=== PATIENT | male | born 1995 | race African-American/Black ===

== ENCOUNTER 2019-08-08 21:01 | Inpatient (IN) | payer OTHER, SELFPAY ==
[~2019-08-08] VITALS: Ht 182.9 cm; Wt 72.6 kg
[2019-08-08 21:12] VITALS: Ht 182.9 cm; Wt 72.6 kg
[2019-08-08 22:35] LABS: BASOPHIL % 0.2 % (0-2)
[2019-08-08 22:43] LABS: PLATELET COUNT 518 x10^3mcL (130-400); RED CELL DISTRIBUTION WIDTH 19.6 % (11.5-14.5)
[2019-08-08 23:04] LABS: rbc morphology (normal/abnorm) ABNORMAL (NORMAL)
[2019-08-08 23:09] LABS: CALCIUM 7.9 mg/dL (8.5-10.1); CARBON DIOXIDE 33.5 mmol/L (21-32); CREATININE SERUM 2.8 mg/dL (0.7-1.3); POTASSIUM SERUM 4.3 mmol/L (3.5-5.1)
[2019-08-08 23:15] LABS: BILIRUBIN TOTAL 0.2 mg/dL (0.20-1.00)
[2019-08-08 23:19] LABS: TOTAL PROTEIN, SERUM 5.4 g/dL (6.4-8.2)
[2019-08-09] VITALS (7 sets, daily range): BP systolic 108–127; BP diastolic 66–73
[2019-08-09 00:42] LABS: MAGNESIUM 1.9 mg/dL (1.8-2.4); PHOSPHOROUS 3.3 mg/dL (2.5-4.9)
[2019-08-09] MEDS ORDERED: FLE10 (01:50)
[2019-08-09] MEDS ORDERED: FEROSUL325 M1 PO (01:51)
[2019-08-09] MEDS ORDERED: RENVELA800 M1 PO (01:52)
[2019-08-09] MEDS ORDERED: DITROPAN XL5 MG PO (01:52)
[2019-08-09] MEDS ORDERED: PEPCID AC20 M2 PO (01:54)
[2019-08-09] MEDS ORDERED: AMLODIPINE BESY PO (01:54)
[2019-08-09] MEDS ORDERED: TOPROL XL100 MG PO (01:56)
[2019-08-09] MEDS ORDERED: HORIZANT300 MG PO (01:57)
[2019-08-09] MEDS ORDERED: AMBIEN5 MG PO (01:58)
[2019-08-09] MEDS ORDERED: COL100 PO (01:59)
[2019-08-09] MEDS ORDERED: DULCOLAX10 M1 RC (01:59)
[2019-08-09] MEDS ORDERED: FLEET ENEMA135 ML PR (02:00)
[2019-08-09] MEDS ORDERED: OXYCODONE HCL10 MG PO (02:01)
[2019-08-09] MEDS ORDERED: MORPHINE S20 MG/5 ML PO (02:04)
[2019-08-09] MEDS ORDERED: GOOD SENSE400 MG/5 M PO (02:05)
[2019-08-09] MEDS ORDERED: IPRATROPIUM BROM3 M2 IH (02:10)
[2019-08-09] MEDS ORDERED: SENNA8.6 M2 PO (02:11)
[2019-08-09 11:02] LABS: BASOPHIL % 0.3 % (0-2)
[2019-08-09 11:07] LABS: RED CELL DISTRIBUTION WIDTH 18.2 % (11.5-14.5)
[2019-08-09 11:14] LABS: CARBON DIOXIDE 32.2 mmol/L (21-32); CREATININE SERUM 3.1 mg/dL (0.7-1.3); MAGNESIUM 1.9 mg/dL (1.8-2.4); PHOSPHOROUS 4.2 mg/dL (2.5-4.9); POTASSIUM SERUM 4.6 mmol/L (3.5-5.1)
[2019-08-09 12:32] LABS: RED BLOOD CELLS 2.28 M/mm3 (4.52-5.90)
[2019-08-09 12:36] LABS: IRON 17 ug/dL (65-170); TOTAL IRON BINDING CAPACITY 71 ug/dL (250-450)
[2019-08-09 14:47] LABS: tear drop cell (dacryocyte) 1+
[2019-08-09 14:48] LABS: rbc morphology (normal/abnorm) ABNORMAL (NORMAL)
[2019-08-09 14:50] LABS: PLATELET COUNT 554 x10^3mcL (130-400)
[2019-08-09 19:20] LABS: BASOPHIL % 0.4 % (0-2); PLATELET COUNT 474 x10^3mcL (130-400); RED CELL DISTRIBUTION WIDTH 17.2 % (11.5-14.5)
[2019-08-10 05:09] VITALS: BP 122/70
[2019-08-10 07:00] LABS: BASOPHIL % 0.5 % (0-2); RED BLOOD CELLS 2.93 M/mm3 (4.52-5.90)
[2019-08-10 07:08] LABS: CALCIUM 8.2 mg/dL (8.5-10.1); CREATININE SERUM 3.6 mg/dL (0.7-1.3); POTASSIUM SERUM 5.3 mmol/L (3.5-5.1)
[2019-08-10 07:12] LABS: PLATELET COUNT 526 x10^3mcL (130-400)
[2019-08-10 07:26] VITALS: BP 122/75
[2019-08-10 07:35] VITALS: BP 110/49
[2019-08-10 12:54] VITALS: BP 147/82
[2019-08-10 16:37] VITALS: BP 114/84
[2019-08-11 04:33] VITALS: BP 132/91
[2019-08-11 06:40] LABS: BASOPHIL % 0.4 % (0-2)
[2019-08-11 06:59] LABS: RED CELL DISTRIBUTION WIDTH 17.1 % (11.5-14.5)
[2019-08-11 07:00] LABS: PLATELET COUNT 660 x10^3mcL (130-400)
[2019-08-11 07:06] LABS: CALCIUM 8.1 mg/dL (8.5-10.1); MAGNESIUM 2.1 mg/dL (1.8-2.4); PHOSPHOROUS 5.3 mg/dL (2.5-4.9)
[2019-08-11 07:11] LABS: CREATININE SERUM 4.1 mg/dL (0.7-1.3); POTASSIUM SERUM 5.8 mmol/L (3.5-5.1)
[2019-08-11 08:08] LABS: calcium (part of PTHIC) 8.7 mg/dL (8.7-10.2)
[2019-08-11 08:23] VITALS: BP 146/90
[2019-08-11 16:36] VITALS: BP 149/94
[2019-08-11 21:42] VITALS: BP 120/80
[2019-08-12 08:10] VITALS: BP 141/101
[2019-08-12 09:00] LABS: BASOPHIL % 0.3 % (0-2)
[2019-08-12 09:01] LABS: CALCIUM 8.4 mg/dL (8.5-10.1); CARBON DIOXIDE 33.7 mmol/L (21-32); CREATININE SERUM 3.8 mg/dL (0.7-1.3); MAGNESIUM 1.9 mg/dL (1.8-2.4)
[2019-08-12 09:06] LABS: RED CELL DISTRIBUTION WIDTH 17.8 % (11.5-14.5)
[2019-08-12 09:30] LABS: PLATELET COUNT 650 x10^3mcL (130-400)
[2019-08-12 16:21] VITALS: BP 138/78
[2019-08-12 16:34] VITALS: BP 141/101
== END 2019-08-12 19:39 | disposition short-term general hospital (02) | DRG 470 ==
LOC: ED 21:01 → MU 08-09 00:10 → DU 08-09 20:38
PROVIDERS: Emergency Medicine; Family Medicine; Specialist; ADMIT Internal Medicine
PROC: 30233N1 Transfusion of Nonautologous Red Blood Cells into Peripheral Vein, Percutaneous Approach (ICD-10-PCS; 2019-08-09)
PROC: 5A1D70Z Performance of Urinary Filtration, Intermittent, Less than 6 Hours Per Day (ICD-10-PCS; principal; 2019-08-11)
DX: I12.0 Hypertensive chronic kidney disease with stage 5 chronic kidney disease or end stage renal disease (principal); J90 Pleural effusion, not elsewhere classified; E11.22 Type 2 diabetes mellitus with diabetic chronic kidney disease; E83.39 Other disorders of phosphorus metabolism; D72.829 Elevated white blood cell count, unspecified; Z20.828 Contact with and (suspected) exposure to other viral communicable diseases; Z88.8 Allergy status to other drugs, medicaments and biological substances; N18.6 End stage renal disease; Z99.2 Dependence on renal dialysis; D63.1 Anemia in chronic kidney disease; E87.5 Hyperkalemia; Z11.59 Encounter for screening for other viral diseases; L97.929 Non-pressure chronic ulcer of unspecified part of left lower leg with unspecified severity; L97.919 Non-pressure chronic ulcer of unspecified part of right lower leg with unspecified severity
CPT/HCPCS: 82962; 83880; G0378; J0610; J0696; J2405; J3010; J7030; J7050; P9016; Q0092; Q0163; U0003-CS

== ENCOUNTER 2019-09-11 17:17 | Inpatient (IN) | payer OTHER ==
[~2019-09-11] VITALS: Ht 185.4 cm; Wt 49.9 kg
[~2019-09-11 17:17] MED LIST: AMBIEN5 MG PO; AMLODIPINE BESY PO; COL100 PO; DITROPAN XL5 MG PO; DULCOLAX10 M1 RC; FEROSUL325 M1 PO; FLE10; FLEET ENEMA135 ML PR; GOOD SENSE400 MG/5 M PO; HORIZANT300 MG PO; IPRATROPIUM BROM3 M2 IH; MORPHINE S20 MG/5 ML PO; OXYCODONE HCL10 MG PO; PEPCID AC20 M2 PO; RENVELA800 M1 PO; SENNA8.6 M2 PO; TOPROL XL100 MG PO
[2019-09-11 17:45] VITALS: Ht 185.4 cm; Wt 49.9 kg
[2019-09-11 18:23] LABS: BASOPHIL % 0.5 % (0-2)
[2019-09-11 18:31] LABS: PLATELET COUNT 545 x10^3mcL (130-400); RED CELL DISTRIBUTION WIDTH 17.7 % (11.5-14.5)
[2019-09-11 18:44] LABS: ALKALINE PHOSPHATASE 189 U/L (46-116); ALT/SGPT 12 U/L (16-63); AMYLASE 31 U/L (25-115); AST/SGOT 22 U/L (15-37); BILIRUBIN TOTAL 0.2 mg/dL (0.20-1.00); CARBON DIOXIDE 34.5 mmol/L (21-32); CHLORIDE SERUM 103 mmol/L (98-107); CREATININE SERUM 3.7 mg/dL (0.7-1.3); GFR1 22 mL/min; GLUCOSE SERUM 110 mg/dL (74-106); LIPASE 59 IU/L (73-393); POTASSIUM SERUM 5.2 mmol/L (3.5-5.1); SODIUM SERUM 139 mmol/L (136-145)
[2019-09-11 18:47] LABS: rbc morphology (normal/abnorm) ABNORMAL (NORMAL); schistocyte (helmet cell) 1+
[2019-09-11 18:48] LABS: CALCIUM 7.8 mg/dL (8.5-10.1)
[2019-09-11 18:49] LABS: ALBUMIN 1.2 g/dL (3.4-5.0); CHOLESTEROL 110 mg/dL (<200); HDL CHOLESTEROL 21 mg/dL (40-60); T4(THYROXINE) 3.8 ug/dL (4.7-13.3); TOTAL PROTEIN, SERUM 6.1 g/dL (6.4-8.2)
[2019-09-11 18:51] LABS: microscopic required? YES; urine erythrocyte 2+ (NEGATIVE)
[2019-09-11 19:38] LABS: AMPHETAMINE QUAL UR NONE DETECTED (See below)
[2019-09-11 21:27] LABS: PHOSPHOROUS 5.1 mg/dL (2.5-4.9)
[2019-09-11 22:53] VITALS: BP 130/79
[2019-09-12 06:00] VITALS: BP 103/547; BP 133/79
[2019-09-12 06:56] VITALS: BP 103/54
[2019-09-12 07:36] LABS: BASOPHIL % 0.5 % (0-2)
[2019-09-12 07:45] LABS: RED CELL DISTRIBUTION WIDTH 17.8 % (11.5-14.5)
[2019-09-12 07:47] LABS: CALCIUM 7.8 mg/dL (8.5-10.1); CARBON DIOXIDE 31.3 mmol/L (21-32); PHOSPHOROUS 5.4 mg/dL (2.5-4.9); POTASSIUM SERUM 5.4 mmol/L (3.5-5.1)
[2019-09-12 07:49] LABS: CREATININE SERUM 4.1 mg/dL (0.7-1.3)
[2019-09-12 07:51] LABS: PLATELET COUNT 570 x10^3mcL (130-400)
[2019-09-12 09:14] VITALS: BP 126/75
[2019-09-12 17:00] VITALS: BP 125/67
[2019-09-12 20:57] VITALS: BP 125/81
[2019-09-13 04:04] LABS: BASOPHIL % 0.4 % (0-2)
[2019-09-13 04:06] LABS: PLATELET COUNT 522 x10^3mcL (130-400); RED CELL DISTRIBUTION WIDTH 16.6 % (11.5-14.5)
[2019-09-13 04:12] LABS: BILIRUBIN TOTAL 0.21 mg/dL (0.20-1.00); CALCIUM 8.1 mg/dL (8.5-10.1); CARBON DIOXIDE 31.8 mmol/L (21-32); CREATININE SERUM 3.5 mg/dL (0.7-1.3); POTASSIUM SERUM 3.7 mmol/L (3.5-5.1); TOTAL PROTEIN, SERUM 6.2 g/dL (6.4-8.2)
[2019-09-13 04:15] LABS: ALBUMIN 1.1 g/dL (3.4-5.0)
[2019-09-13 04:48] LABS: CALCIUM 7.9 mg/dL (8.5-10.1); CARBON DIOXIDE 32.2 mmol/L (21-32); CREATININE SERUM 3.5 mg/dL (0.7-1.3); MAGNESIUM 1.7 mg/dL (1.8-2.4); PHOSPHOROUS 4.2 mg/dL (2.5-4.9); POTASSIUM SERUM 3.6 mmol/L (3.5-5.1)
[2019-09-13 06:03] VITALS: BP 121/73
[2019-09-13 08:51] VITALS: BP 124/72
[2019-09-13 12:38] VITALS: BP 120/73
[2019-09-13 17:33] VITALS: BP 124/85
[2019-09-13 22:05] VITALS: BP 137/91
[2019-09-14 05:31] VITALS: BP 135/85
[2019-09-14 06:26] LABS: MAGNESIUM 1.7 mg/dL (1.8-2.4); PHOSPHOROUS 4.8 mg/dL (2.5-4.9); POTASSIUM SERUM 4.5 mmol/L (3.5-5.1)
[2019-09-14 06:55] LABS: CREATININE SERUM 4.2 mg/dL (0.7-1.3)
[2019-09-14 07:01] LABS: BASOPHIL % 0.4 % (0-2); RED CELL DISTRIBUTION WIDTH 17.3 % (11.5-14.5)
[2019-09-14 08:04] LABS: PLATELET COUNT 521 x10^3mcL (130-400)
[2019-09-14 08:13] VITALS: BP 122/84
[2019-09-14 13:19] VITALS: BP 108/75
[2019-09-14 17:08] VITALS: BP 133/70
[2019-09-14 20:21] VITALS: BP 127/77
[2019-09-15 05:35] VITALS: BP 143/97
[2019-09-15 07:52] LABS: BASOPHIL % 0.3 % (0-2)
[2019-09-15 08:20] LABS: CARBON DIOXIDE 29.1 mmol/L (21-32); CREATININE SERUM 3.4 mg/dL (0.7-1.3); MAGNESIUM 1.8 mg/dL (1.8-2.4); PHOSPHOROUS 4.2 mg/dL (2.5-4.9); POTASSIUM SERUM 4.2 mmol/L (3.5-5.1)
[2019-09-15 08:42] LABS: PLATELET COUNT 486 x10^3mcL (130-400)
[2019-09-15 08:59] VITALS: BP 147/93
[2019-09-15 10:56] VITALS: BP 138/76
[2019-09-15 14:00] VITALS: BP 146/83
[2019-09-15 21:39] VITALS: BP 132/89
== END 2019-09-15 22:08 | DRG 663 ==
LOC: ED 17:17 → DU 20:54
PROVIDERS: Emergency Medicine; Internal Medicine; ADMIT Internal Medicine; ATTEND Internal Medicine
PROC: 5A1D70Z Performance of Urinary Filtration, Intermittent, Less than 6 Hours Per Day (ICD-10-PCS; principal; 2019-09-12)
PROC: 30233N1 Transfusion of Nonautologous Red Blood Cells into Peripheral Vein, Percutaneous Approach (ICD-10-PCS; 2019-09-12)
PROC: 5A1D70Z Performance of Urinary Filtration, Intermittent, Less than 6 Hours Per Day (ICD-10-PCS; 2019-09-14)
DX: D62 Acute posthemorrhagic anemia (principal); J90 Pleural effusion, not elsewhere classified; L89.159 Pressure ulcer of sacral region, unspecified stage; E11.22 Type 2 diabetes mellitus with diabetic chronic kidney disease; G82.20 Paraplegia, unspecified; I12.0 Hypertensive chronic kidney disease with stage 5 chronic kidney disease or end stage renal disease; N18.6 End stage renal disease; F17.210 Nicotine dependence, cigarettes, uncomplicated; D63.1 Anemia in chronic kidney disease; Z20.828 Contact with and (suspected) exposure to other viral communicable diseases; E03.9 Hypothyroidism, unspecified; G89.29 Other chronic pain; J45.909 Unspecified asthma, uncomplicated; Z88.6 Allergy status to analgesic agent; Z99.2 Dependence on renal dialysis; Z79.899 Other long term (current) drug therapy
CPT/HCPCS: 83880; 99406; G0378; G0480; J0885-EC; J1644; J2270; J7030; P9016; Q0092; Q0163; U0003-CS

== ENCOUNTER 2019-10-08 13:49 | Inpatient (IN) | payer OTHER ==
[~2019-10-08] VITALS: Ht 185.4 cm; Wt 59.0 kg
[2019-10-08 14:37] LABS: BASOPHIL % 0.3 % (0-2)
[2019-10-08 14:41] LABS: RED CELL DISTRIBUTION WIDTH 18.4 % (11.5-14.5)
[2019-10-08 14:42] LABS: PLATELET COUNT 555 x10^3mcL (130-400)
[2019-10-08 15:06] LABS: BILIRUBIN TOTAL 0.3 mg/dL (0.20-1.00); CALCIUM 8.3 mg/dL (8.5-10.1); CARBON DIOXIDE 30.3 mmol/L (21-32); TOTAL PROTEIN, SERUM 7.3 g/dL (6.4-8.2)
[2019-10-08 15:10] LABS: ALBUMIN 1.5 g/dL (3.4-5.0)
[2019-10-08 15:14] LABS: CREATININE SERUM 4.1 mg/dL (0.7-1.3)
[2019-10-08 15:31] LABS: rbc morphology (normal/abnorm) ABNORMAL (NORMAL)
[2019-10-08 15:32] LABS: ovalocyte/elliptocyte 1+; target cell (codocyte) 1+; tear drop cell (dacryocyte) 2+
[2019-10-08 18:48] LABS: MAGNESIUM 1.9 mg/dL (1.8-2.4); PHOSPHOROUS 5.8 mg/dL (2.5-4.9)
[2019-10-08 18:50] LABS: CHOLESTEROL/HDL RATIO 3.7
[2019-10-08 18:54] LABS: T3 TOTAL 0.58 ng/mL
[2019-10-08 19:09] LABS: FREE T4 0.75 ng/dL (0.76-1.46); FREE THYROXINE INDEX 1.2 ug/dL (1.4-4.5); T4(THYROXINE) 3.6 ug/dL (4.7-13.3)
[2019-10-08 20:07] VITALS: BP 139/100
[2019-10-08 20:13] VITALS: Ht 185.4 cm; Wt 59.0 kg
[2019-10-08 20:53] LABS: C REACTIVE PROTEIN 10.3 mg/dL (<=0.9)
[2019-10-09 05:27] VITALS: BP 133/99
[2019-10-09 06:34] LABS: BASOPHIL % 0.6 % (0-2)
[2019-10-09 06:47] LABS: CALCIUM 7.9 mg/dL (8.5-10.1); CARBON DIOXIDE 30.2 mmol/L (21-32); MAGNESIUM 1.8 mg/dL (1.8-2.4); PHOSPHOROUS 6.3 mg/dL (2.5-4.9); POTASSIUM SERUM 5.1 mmol/L (3.5-5.1)
[2019-10-09 06:56] LABS: CREATININE SERUM 4.5 mg/dL (0.7-1.3)
[2019-10-09 06:57] LABS: PLATELET COUNT 519 x10^3mcL (130-400); RED CELL DISTRIBUTION WIDTH 18.2 % (11.5-14.5)
[2019-10-09 08:32] VITALS: BP 137/98
[2019-10-09 14:09] LABS: rbc morphology (normal/abnorm) ABNORMAL (NORMAL)
[2019-10-09 16:22] VITALS: BP 119/89
[2019-10-09 19:30] VITALS: BP 133/93
[2019-10-10 00:16] LABS: BASOPHIL % 0.3 % (0-2)
[2019-10-10 00:17] LABS: PLATELET COUNT 474 x10^3mcL (130-400)
[2019-10-10 06:00] VITALS: BP 140/94
[2019-10-10 06:47] LABS: BASOPHIL % 0.3 % (0-2)
[2019-10-10 07:00] LABS: PLATELET COUNT 537 x10^3mcL (130-400); RED CELL DISTRIBUTION WIDTH 16.5 % (11.5-14.5)
[2019-10-10 07:08] LABS: CALCIUM 7.9 mg/dL (8.5-10.1); CARBON DIOXIDE 30.8 mmol/L (21-32); CREATININE SERUM 3.2 mg/dL (0.7-1.3); MAGNESIUM 1.7 mg/dL (1.8-2.4); PHOSPHOROUS 5.3 mg/dL (2.5-4.9); POTASSIUM SERUM 3.9 mmol/L (3.5-5.1)
[2019-10-10 08:54] VITALS: BP 139/97
[2019-10-10 12:14] VITALS: BP 141/95
== END 2019-10-10 16:00 | DRG 470 ==
LOC: ED 13:49 → MU 18:10 → DU 18:10
PROVIDERS: Emergency Medicine; ADMIT Internal Medicine; ATTEND Internal Medicine
PROC: 30233N1 Transfusion of Nonautologous Red Blood Cells into Peripheral Vein, Percutaneous Approach (ICD-10-PCS; principal; 2019-10-08)
PROC: 5A1D70Z Performance of Urinary Filtration, Intermittent, Less than 6 Hours Per Day (ICD-10-PCS; 2019-10-09)
DX: I12.0 Hypertensive chronic kidney disease with stage 5 chronic kidney disease or end stage renal disease (principal); E43 Unspecified severe protein-calorie malnutrition; L89.159 Pressure ulcer of sacral region, unspecified stage; E11.22 Type 2 diabetes mellitus with diabetic chronic kidney disease; G82.20 Paraplegia, unspecified; N18.6 End stage renal disease; Z20.828 Contact with and (suspected) exposure to other viral communicable diseases; D63.1 Anemia in chronic kidney disease; G89.29 Other chronic pain; K21.9 Gastro-esophageal reflux disease without esophagitis; Z88.6 Allergy status to analgesic agent; Z90.49 Acquired absence of other specified parts of digestive tract; Z99.2 Dependence on renal dialysis; Z68.1 Body mass index [BMI] 19.9 or less, adult
CPT/HCPCS: 83880; 84439; C9113; G0378; J1644; J7030; P9016; Q0092; Q0163; U0003-CS

== ENCOUNTER 2019-10-26 16:11 | Emergency (ER) | payer OTHER ==
[~2019-10-26] VITALS: Ht 185.4 cm; Wt 72.6 kg
[2019-10-26 16:27] VITALS: Ht 185.4 cm; Wt 72.6 kg
[2019-10-26 16:31] VITALS: BP 136/84
== END 2019-10-26 19:38 | disposition home or self-care (01) ==
LOC: ED 16:11
DX: T83.028A Displacement of other urinary catheter, initial encounter (principal); E11.22 Type 2 diabetes mellitus with diabetic chronic kidney disease; I12.0 Hypertensive chronic kidney disease with stage 5 chronic kidney disease or end stage renal disease; N18.6 End stage renal disease; Z46.6 Encounter for fitting and adjustment of urinary device; Z88.6 Allergy status to analgesic agent; Z98.890 Other specified postprocedural states

== ENCOUNTER 2019-11-02 18:20 | Inpatient (IN) | payer OTHER ==
[~2019-11-02] VITALS: Ht 185.4 cm; Wt 59.0 kg
[2019-11-02 19:01] LABS: BASOPHIL % 0.2 % (0-2)
[2019-11-02 19:03] LABS: PLATELET COUNT 463 x10^3mcL (130-400); RED CELL DISTRIBUTION WIDTH 18.4 % (11.5-14.5)
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
[2019-11-02 19:20] LABS: rbc morphology (normal/abnorm) ABNORMAL (NORMAL); schistocyte (helmet cell) 1+
[2019-11-02 19:24] LABS: BILIRUBIN DIRECT 0.14 mg/dL (0.0-0.2); BILIRUBIN TOTAL 0.3 mg/dL (0.20-1.00); CALCIUM 8.2 mg/dL (8.5-10.1); CARBON DIOXIDE 22.4 mmol/L (21-32); POTASSIUM SERUM 5.1 mmol/L (3.5-5.1); TOTAL PROTEIN, SERUM 6.9 g/dL (6.4-8.2)
[2019-11-02 19:28] LABS: ALBUMIN 1.6 g/dL (3.4-5.0); CREATININE SERUM 4.9 mg/dL (0.7-1.3)
--- NOTE | 2019-11-02 19:54 | NUR ---
PT CONNECTED TO FULL CM. PT SUPINE IN GURNEY PLAYING VIDEO GAMES. REFUSES TO BE TURNED FOR POSTERIOR BODY SKIN ASSESSMENT.
--- NOTE | 2019-11-02 20:55 | NUR ---
REPORT GIVEN TO ROBERTA MONTANEZ TO ASSUME CARE OF PT.
--- NOTE | 2019-11-02 21:20 | NUR ---
RECEIVED PT FROM ED VIA [facility], CAME IN DUE TO LEAKING CATHETER. AAOX4. DENIES HEADACHE/DIZZINESS. ABLE TO FOLLOW COMMANDS. NO SOB NOTED, LUNG SOUNDS DIMINISHED, O2 EPI=805% ON 3LPM/NC. DENIES COUGH. DENIES CHEST PAIN/PRESSURE, SR W/ OCC. PVC'S ON THE MONITOR. PALE. DENIES ABDOMINAL PAIN/NAUSEA/VOMITING. ABDOMEN IS DISTENDED AND SOFT. W/ LEFT ABDOMINAL COLOSTOMY, NO STOOL OUTPUT NOTED AT THIS TIME, STOMA IS PINK. W. SUPRAPUBIC CATHETER DRAINING W/ CLOUDY YELLOW URINE. C/O 10/10 BACK PAIN AND ITCHINESS. LOTION APPLIED ON THE BACK PT'S REQUEST. W/ OPTIFOAM DRESSING ON THE SACRAL AREA AND KERLIX DRESSINGS ON BLE AND HEEL PROTECTORS, DRESSINGS ARE CDI. PT REFUSED WHOLE BODY SKIN ASSESSMENT. SIDE RAILS UPX2. CALL LIGHT ON REACH. HOB ELEVATED AT 30 DEG. ENDORSED TO PRIMARY NURSE TARIK FOR CONTINUITY OF CARE
[2019-11-02 21:30] VITALS: BP 121/64
[2019-11-02 21:39] VITALS: Ht 185.4 cm; Wt 59.0 kg
--- NOTE | 2019-11-02 22:13 | NUR ---
BLOOD VERIFIED WITH OIL PROCESS STILLMANYUDITH. MEDICATED WITH BENADRYL PO. PRBC STARTED AT 60ML/HR. PRE VS: 98.0F, 92BPM, 18RR, 121/64, 100% ON RA. EDUCATED PT ON S/S OF ADVERSE REACTION AND TO NOTIFY STAFF IF ANY OCCURS, PT VERBALIZED UNDERSTANDING. WILL STAY WITH PT FOR 15MINS, CONTINE TO MONITOR
--- NOTE | 2019-11-02 22:25 | NUR ---
POST 15 MIN VS: 97.5F, 84BPM, 18RR, 120/76, 96% ON 3LNC, NO ADVERSE REACTION NOTED. RATE INCREASED TO 120ML/HR. PT TOLERATING WELL. WILL CONTINUE TO MONITOR.
[2019-11-02 23:13] LABS: T3 TOTAL 0.54 ng/mL
[2019-11-02 23:40] LABS: PHOSPHOROUS 5.4 mg/dL (2.5-4.9)
[2019-11-02 23:41] LABS: CHOLESTEROL/HDL RATIO 3.4; MAGNESIUM 2.1 mg/dL (1.8-2.4)
[2019-11-02 23:42] LABS: FREE T4 1.07 ng/dL (0.76-1.46); FREE THYROXINE INDEX 1.1 ug/dL (1.4-4.5); T4(THYROXINE) 3.4 ug/dL (4.7-13.3)
--- NOTE | 2019-11-03 00:13 | NUR ---
PT RESTING COMFORTABLY IN BED. NO ACUTE DISTRESS NOTED. PRBC INFUSING AT THIS TIME, NO ADVERSE REACTION NOTED. ON TELE READING SR WITH PVCS. REFUSED TO BE TURNED AND REPOSITIONED AT THIS TIME. WILL CONTINUE TO MONITOR.
--- NOTE | 2019-11-03 01:10 | NUR ---
PRBC TRANSFUSION COMPLETED. NO ADVERSE REACTION NOTED. PT TOLERATED WELL. VS: 98.8F, 92BPM, 16RR, 112/70, 100% ON 3LNC. SCHEDULED IVPB STARTED. WILL CONTINUE TO MONITOR.
[2019-11-03 01:18] LABS: UA SPECIFIC GRAVITY <=1.005 (1.005-1.035); microscopic required? YES; urine erythrocyte 1+ (NEGATIVE)
--- NOTE | 2019-11-03 06:52 | NUR ---
PT RESTED IN INTERVALS THROUGHOUT THE SHIFT. ALL NEEDS TENDED TO AND MET. PT REFUSING CARE THIS AM (VS, REPOSITIONING, WOUND PICTURES), WILL MAKE MD AWARE. EVEN AND UNLABORED RESPIRATIONS ON 3LNC, ON TELE READING SR WITH PVCS. GORDON IN PLACE, MILKY GREENISH OUTPUT WITH FOUL ODOR NOTED. RLQ IN PLACE. RIGHT CHEST PERMACATH IN PLACE, DRESSING CDI. BED IN LOWEST POSITION. SIDE RAILS UPX2. CALL LIGHT WITHIN REACH. WILL ENDORSE TO ONCOMING SHIFT.
--- NOTE | 2019-11-03 08:10 | NUR ---
RECEIVED PT IN BED A/A/OX4 DENIES GUITERREZ. RESP EVEN AND UNLABORED WITH DIMINISHED BS ON O2 AT 3L/MIN VIA NC. DENIES ANY SOB/CP/PRESSURE AT THIS TIME. NSR WITH PVC'S ON TELE. ABD DISTENDED, NONTENDER WITH ACTIVE BS. COLOSTOMY TO LLQ WITH FORMED STOOL. PT WOULD NOT ALLOW FULL ASSESSEMENT AT THIS TIME. WOULD NOT TURN TO EXAMINE BACK. PER REPORT PT HAS OPTIFOAM TO SACRAL AREA. PT HAS KERLIX TO BLE AND ARE IN HEEL PROTECTORS. PT WOULD NOT ALLOW INSPECTIONS OF SUPRAPUBIC AREA, GORDON CATH NOTED WITH SMALL AMOUNT OF YELLOW/GREEN CLOUDY URINE. ESRD WITH HD MWF, PT HAD TUNNELED CATH TO RCW. NOTED WITH DRY FLACKY SKIN TO BACK AND HIPS AREA THAT WAS VISUALIZED. PT WOULD NOT ALLOW REPOSITIONING AT THIS TIME OTHER THAN ALIGNING BODY, AND PILLOW ADJUSTMENT. CALL LIGHT IN REACH, NEEDS ATTENDED TO AND ANTICIPATED.
[2019-11-03 08:40] VITALS: BP 113/71
--- NOTE | 2019-11-03 10:45 | NUR ---
HD ORDER IN PLACE, US CALLED HD NURSE AND MADE AWARE OF TX ORDER.
[2019-11-03 12:07] VITALS: BP 114/66
--- NOTE | 2019-11-03 12:45 | NUR ---
PT ALLOWED PARTIAL REPOSITIONING FOR MEAL ALONG WITH MEAL PREP, PT ASKED IF HE WOULD ALLOW AIRMATTRESS TO BE PLACED AND PT REFUSED. CALL LIGHT IN REACH NEEDS ATTENDED TO.
[2019-11-03 16:28] VITALS: BP 127/64
--- NOTE | 2019-11-03 17:40 | NUR ---
PT ASSISTED WITH MEAL PREP, PT ALLOWED REPOSITIONING FOR MEAL. PT ASKED ONCE MORE AT THIS TIME. IF HE WOULD ALLOW COMPLETE REPOSITIONING AFTER MEAL OR TO BE PLACED ON AIRMATTRESS AND PT REFUSED ONCE MORE.
--- NOTE | 2019-11-03 18:49 | NUR ---
PT RESTING AT THIS TIME. DENIES ANY DISCOMFORT, CALL LIGHT IN REACH NEEDS ATTENDED TO.
--- NOTE | 2019-11-03 20:00 | NUR ---
PT A/A/O X3. DENIES DIZZINESS AND HEADACHE. BREATH SOUNDS CLEAR. BREATHING EVEN AND UNLABORED ON 3L NC, SPO2 99%. DENIES CHEST PAIN AND PRESSURE. BOWEL SOUNDS ACTIVE. NO C/O N/V AND ABD PAIN. ABDOMEN DISTENDED. COLOSTOMY BAG NOTED ON LLQ WITH BROWN STOOL. OFFERED TO EMPTY COLOSTOMY BAG. PT STATED "ILL DO IT.". PT CURRENTLY DOING HEOMDIALYSIS THAT STARTED AT 1935. TUNNEL CATH TO RCW. HEMODIALYSIS NURSE AT BEDSIDE. IV INTACT ON THE LAC. PT REFUSE ASSESSMENT FROM THE WAIST DOWN. PT REFUSED TO BE TURNED AND AIR MATTRESS TO BE PUT ON. SUPRABUPIC CATH NOTED EMPTY. DRY FLAKY SKIN NOTED ON THE LEFT HIPS. AND SCRATCHES NOTED ON BUE. MADE PT COMFORTABLE. PLACED CALL LIGHT WITH IN REACH. WILL CONTINUE TO MONITOR.
[2019-11-03 20:03] LABS: BASOPHIL % 0.3 % (0-2)
[2019-11-03 20:07] LABS: CALCIUM 7.9 mg/dL (8.5-10.1); CARBON DIOXIDE 24.6 mmol/L (21-32); MAGNESIUM 2.2 mg/dL (1.8-2.4); PHOSPHOROUS 6.3 mg/dL (2.5-4.9); PLATELET COUNT 443 x10^3mcL (130-400); POTASSIUM SERUM 5.4 mmol/L (3.5-5.1)
[2019-11-03 20:10] LABS: CREATININE SERUM 5.8 mg/dL (0.7-1.3)
[2019-11-03 20:42] VITALS: BP 106/70
--- NOTE | 2019-11-03 22:40 | NUR ---
PT FINISHED HEMODIALYSIS. PT TOLERATED IT WELL. 2600 ML OUT. WILL CONTINUE TO MONITOR.
--- NOTE | 2019-11-04 00:23 | NUR ---
PT REFUSED TO SIGN REFUSAL TO PERMIT TREATMENT PAPER. WILL CONTINUE TO MONITOR.
[2019-11-04 05:13] VITALS: BP 107/67
[2019-11-04 05:38] LABS: BASOPHIL % 0.4 % (0-2)
[2019-11-04 05:46] LABS: PLATELET COUNT 457 x10^3mcL (130-400)
[2019-11-04 05:55] LABS: CALCIUM 7.8 mg/dL (8.5-10.1); CARBON DIOXIDE 26.5 mmol/L (21-32); CREATININE SERUM 3.9 mg/dL (0.7-1.3); MAGNESIUM 1.9 mg/dL (1.8-2.4); PHOSPHOROUS 3.9 mg/dL (2.5-4.9); POTASSIUM SERUM 3.6 mmol/L (3.5-5.1)
--- NOTE | 2019-11-04 06:56 | NUR ---
PT QUIET AND RESTING. NO C/O PAIN AND DISCOMFORT THUS FAR. IV INTACT AND INFUSING ORDERED. MADE PT COFMORTABLE. WILL ENDORSE TO THE AM NURSE ACCORDINGLY.
--- NOTE | 2019-11-04 07:50 | NUR ---
RECEIVED PT IN BED A/A/OX4 DENIES GUTIERREZ. RESP EVEN AND UNLABORED WITH SLIGHTLY DIMINISHED BS BILAT. ON O2 AT 2.5L/MIN VIA NC. NSR WITH PVCS ON TELE. IV TO LAC. ABD DISTENDED, NONTENDER WITH ACTIVE BS X4. DENIES ANY N/V AT THIS TIME. COLOSTOMY TO LLQ. PT REFUSED FULL SKIN ASSESSMENT AT THIS TIME. PER REPORT PT HAS OPTIFOAM TO SACRAL AREA AND BANDAGES TO BLE WITH HEEL PROTECTORS. NOTED WITH DRY FLACKY SKIN TO LT HIP AREA WHERE SKIN WAS VISUALIZED, DRY ITCHY SKIN TO BUE AND BACK. PT WITH SUPRAPUBIC CATHETER UNABLE TO ASSESS SITE WITH SMALL AMOUNT OF CLOUDY URINE. PT PARAPHLEGIC AND BEDBOUND. REFUSES TURNING AND REPOSITIONING. ONLY ALLOW OCC REALIGNMENT. NEEDS ANTICIPATED, CALL LIGHT IN REACH.
[2019-11-04 08:29] VITALS: BP 100/65
--- NOTE | 2019-11-04 09:20 | NUR ---
CHECKED WITH PT IF AM MEDS COULD BE GIVEN PT REFUSED AT THIS TIME REQUESTED TO RETURN LATER.
--- NOTE | 2019-11-04 10:44 | NUR ---
ATTEMPTED TO GIVE MEDS. PT REFUSED. ASKED IF HE WOULD TAKE THEM AROUND LUNCH TIME AND PT AGREED. WILL CONT TO MONITOR.
--- NOTE | 2019-11-04 11:30 | NUR ---
DR. GU MADE AWARE THAT PT HAS BEEN REFUSING CARE AND TURNING. WILL CONT TO MONITOR.
[2019-11-04 12:29] VITALS: BP 98/65
[2019-11-04 12:36] VITALS: BP 110/73
--- NOTE | 2019-11-04 13:30 | NUR ---
ENTER PT'S ROOM TO CK IF PT WILL ALLOW MEDS ORDER SINGNALED BY THE PATIENT TO LEAVE THE ROOM. WILL F/U LATER TODAY.
--- NOTE | 2019-11-04 14:30 | NUR ---
CHECKED ON PT CONT TO REFUSED MEDS AT THIS TIME. REFUSED REPOSITIONING WELL.
[2019-11-04 16:39] VITALS: BP 103/64
--- NOTE | 2019-11-04 17:30 | NUR ---
PT ALLOWED FOR MEDS TO BE GIVEN. AGREED TO PARTIAL BEDBATH WITH HEBICLENS, AND REPOSITIONING. PT ALSO ALLOWED CVD TEST FOR PLACEMENT BACK AT SN[facility]. ASSISTED WITH COLOSTOMY EMPTYING AT THIS TIME. CALL LIGHT IN REACH NEEDS ATTENDED TO.
--- NOTE | 2019-11-04 18:53 | NUR ---
PT RSTING COMFORTABLY AT THIS TIME, DENIES ANY DISCOMFORT. PT COOPERATIVE AT TIMES, WOULD ONLY ALLOW SLIGHT SHIFT IN POSITION AND PELVIC ALIGHMENT DURING THE SHIFT. WOULD NOT ALLOW FULL REPOSITIONING. CALL LIGHT IN REACH NEEDS ATTENDED TO.
--- NOTE | 2019-11-04 20:05 | NUR ---
RECEIVED PT ALERT AND ORIENTED X4, BEDBOUND, CURRENTLY BREATHING REGULAR AND UNLABORED ON ROOM AIR. PT DENIES ANY SOB OR DISCOMFORTAT THIS TIME. NSR WITH PVCS ON TELE MONITORING. LAC PIV IS PATENT, DRESSING CDI, NO SIGNS OF INFILTRATION. PT REFUSED AUSCULTATIN OF CHEST/ABDOMEN, AND LOWER BODY ASSESSMENT. VISUAL ASSESSMENT OF BUE, NO NOTED EDEMA. PER PT REPORT, OPTIFOAM TO SACRAL AREA WITH BLE HEEL PROTECTORS. PT ALSO REPORTS COLOSTOMY AND SUPRAPUBIC CATHETER ARE INTACT, DRAINING BUT PT REFUSES FULL SKIN ASSESSMENT AT THIS TIME. PT REFUSED OFFERED REPOSITIONING AND AIR MATTRESS AT THIS TIME, DISCUSSED RISKS AND BENEFITS. SAFETY PRECUATIONS IN PLACE WITH CALL LIGHT WITHIN REACH, WILL CONTINUE TO MONITOR.
[2019-11-04 20:35] VITALS: BP 114/78
--- NOTE | 2019-11-05 00:15 | NUR ---
PT REMAINS ALERT AND ORIENTED X4, DENIES ANY ACUTE DISTRESS. PT IS CURRENTLY AWAKE, WITH HOB ELEVATED AND EATING SNACK. PT CONTINUES TO REFUSE COMPLETE PHYSICAL ASSESSMENT, AND PER PT REPORT, COLOSTOMY AND SUPRAPUBIC CATHETER ARE INTACT WITHOUT PROBLEMS. VISUAL ASSESSMENT OF RIGHT CHEST TUNNELED CATHETER, DRESSING IS CLEAN, DRY, AND INTACT WITH NO NOTED SWELLING OR REDNESS. PIV IS PATENT AND INFUSING ORDERED ANTIBIOTIC WITHOUT ISSUES. WILL CONTINUE TO OFFER Q2H REPOSITIONING AND PRN FOR COMFORT. SAFETY PRECAUTIONS IN PLACE WITH CALL LIGHT WITHIN REACH, WILL CONTINUE TO MONITOR.
[2019-11-05 05:35] VITALS: BP 116/81
--- NOTE | 2019-11-05 06:12 | NUR ---
PT REMAINED ALERT AND ORIENTED X4, BREATHING REGULAR AND UNLABORED ON ROOM AIR. PT MAINTAINED REFUSAL OF COMPLETE PHYSICAL ASSESSMENT, WITH PT PERMITTING ONLY VISUAL INSPECTION ABOVE THE WAIST. ANTIBIOTICS INFUSED ORDERED, NO SIGNS OF INFILTRATION TO LAC PIV. R CHEST TUNNELED CATHETER REMAINED INTACT, DRESSING CDI. PT REFUSED REPOSITIONING Q2H, REQUESTING TO BE POSITIONED ONLY NEEDED FOR COMFORT. PT DEMONSTRATED CALL LIGHT USE, DENIED ANY DISTRESS OVERNIGHT. SAFETY PRECAUTIONS MAINTAINED, WILL ENDORSE CARE TO DAY SHIFT RN.
[2019-11-05 06:46] LABS: BASOPHIL % 0.4 % (0-2)
[2019-11-05 07:18] LABS: CALCIUM 7.9 mg/dL (8.5-10.1); MAGNESIUM 2.2 mg/dL (1.8-2.4); PHOSPHOROUS 4.5 mg/dL (2.5-4.9); POTASSIUM SERUM 4.3 mmol/L (3.5-5.1)
[2019-11-05 07:21] LABS: CREATININE SERUM 4.6 mg/dL (0.7-1.3)
--- NOTE | 2019-11-05 07:29 | NUR ---
RECEIVED REPORT FROM NIGHTSHIFT RN. PATIENT IS RESTING IN BED. RESPIRATIONS APPEAR REGULAR AND LABORED. UPDATED CARE BOARD. CALL LIGHT AND BEDSIDE TABLE WITHIN REACH. [place] CONTINUE TO MONITOR.
[2019-11-05 07:42] LABS: RED CELL DISTRIBUTION WIDTH 19.1 % (11.5-14.5)
[2019-11-05 07:43] LABS: PLATELET COUNT 510 x10^3mcL (130-400)
[2019-11-05 08:06] VITALS: BP 117/84
--- NOTE | 2019-11-05 08:40 | NUR ---
patient receiving dialysis right now. introduced self and role. attempted to give patient his morning medication but is refusing at this time. he agreed to take it after hd. will continue to monitor.
--- NOTE | 2019-11-05 10:55 | NUR ---
PATIENT AGREED TO TAKE MORNING MEDS. ALLOWED TH IS COCOA ROASTER TO EMPTY COLOSTOMY. PATIENT AGREED TO HAVE A BATH LATER. WILL CONTINUE TO MONITOR.
[2019-11-05 12:21] VITALS: BP 125/89
--- NOTE | 2019-11-05 15:06 | NUR ---
Initial Nutrition Assessment: 232B ANDREA EDUARDO 24M HR Dx: Severe Anemia, complicated UTI PMHx: HTN, CKD, ESRD on HD PSHx: Left colostomy Labs: (11/04) WBC 12.7H, H/H 7.9/24L, Na 133L, BUN 35H, Cr 4.6H, BG 111H, (11/01) CRP 8.6H, albumin 1.6L, HDL 20L Meds: Synthroid, Zosyn, Bactroban, Lipitor, Ditropan, Renagel, Procrit, Pepcid, Flexeril, Nephro-leonard, Neurontin, Folic acid, Ferrous sulfate, topROL XL, Norvasc, Colace Diet: Renal PO intake since admission: 75-100% x 2 meals Ht: 185.42cm/73in Wt: 58.967kg/130lbs BMI: 17.2 Bed scale: not functioning at the time IBW: 79kg/173.8lbs %IBW: 75% UBW: unknown Age: 24 Food Allergies: NFKA per pt Edema: no noted edema Last BM: 11/03 GI: [+] colostomy Skin: Sacral-coccygeal with optifoam, pt refused skin assessment per skin assessment note (11/01) Panchito: 14 Per H and P (11/04), A 23 yo male w/ PMHx of HTN, chronic renal disease and paraplegia presents to the hospital from [facility] with complaints of albina purulent discharge from his suprapubic catheter that started 2 days ago. Pt has no other complaints and states that he is compliant with his hemodialysis, which is scheduled Sunday/Sunday/Sunday. Pt denies fever, headache, nausea, vomiting, shortness of breath, chest pain, abdominal pain, dysuria or hematuria, or generalized weakness. Pt has a hx of paraplegia from the waist down and is currently on room air. Pt was admitted with dx: Hemolytic normocytic anemia, Catheter infection, h/o paraplegia, Vasomotor nephropathy, hypothyroidism, hyponatremia, hypocalcemia, h/o HTN, Severe malnutrition, DVT RD Note (11/04) Pt was seen lying in bed covered by blankets during bedside visit. Pt appeared to be weak and lethargic. Pt reported no GI distress today, and he did not have c/o chewing/swallowing difficulty. In the middle of assessment, pt reported wanting to go back to sleep, and RD talked to pt's RN for information. Per RN, pt did not had his breakfast, and pt did not have his lunch either per observation when RD was in pt's room. RN mentioned that pt told RN his brother will be bringing food to the hospital; however, pt might not have permission from MD. Additionally, RN reported formed stool output in pt's colostomy bag. Problem with: N/V/D/C: none per pt Problems with: Chewing: Swallowing: not accessible since pt had not had any food yet Current appetite: fair per pt, poor per RN and observation Recent wt change: unknown %wt change: unknown Height: unknown Vitamin/Supplement use: unknown Special diet at home: regular diet per admission assessment note on 11/01 Physical activity: unknown Nutrition education given (specify specific nutrition education and handout given): not given at this time d/t pt being lethargic Food-drug interactions? Education given? n/a Estimated Nutritional Needs Based on current body weight (59kg) Energy: 2479-5828 kcal/day (30-35 kcal/kg for ESRD on HD) Protein: 70-83 g/day (1.2-1.4 g/kg for ESRD on HD) Fluid: 3137-4119 mL/day (1 mL/kcal) Nutrition Diagnosis: 1. Underweight r/t imbalance intake and output a/e/b pt BMI < 18.5. 2. Increased energy and protein intake r/t increased energy and protein expenditure a/e/b pt ESRD on HD. 3. Inadequate energy and protein intake r/t poor PO intake a/e/b pt not having breakfast or lunch on 11.04, and RN reported poor appetite. Intervention 1. Continue Renal diet as tolerate 2. RD will implement ONS if pt PO intake meets < 75% of estimated kcal and protein needs. 3. RD will follow up with Renal diet education 4. RD will follow up with intake of outside food Monitor/Evaluate Goal: PO intake at least 75% of estimated needs Monitor: PO intake, Labs, GI function, Body weight F/U in 2-3 days as high risk
--- NOTE | 2019-11-05 16:31 | NUR ---
PATIENT REMAINS A&OX4, ROOM AIR, VITALS STABLE, CONTINUES TO REFUSE FULL ASSESSMENT AND REPOSITIONING. AGREEABLE TO TAKE MEDS. WILL CONTINUE TO MONITOR.
[2019-11-05 16:33] VITALS: BP 123/81
--- NOTE | 2019-11-05 17:06 | NUR ---
PATIENT A&OX4, ROOM AIR, VITALS STABLE, YELLOW URINE DRAINING FROM SUPRAPUBIC CATHETER, COLOSTOMY EMPTIED X1 THIS SHIFT. TOLERATING DIET. CONTINUES TO REFUSE FULL ASSESSMENT. AGREEABLE TO TAKE MEDICATIONS. COVID RESULT NEGATIVE. PENDING URINE CULTURE AND SENSITIVITY RESULTS. PT REFUSES RN TO ASSESS BACK AND BUTTOCK. MD AWARE OF PATIENT NONCOMPLIANCE. CALL LIGHT AND BEDSIDE TABLE WITHIN REACH. NEEDS ATTENDED.
[2019-11-05 20:03] VITALS: BP 126/91
--- NOTE | 2019-11-05 20:39 | NUR ---
ERECEIVED PT LYING IN BED AWAKE ALERT AND ORIENTEDX4.PT IS VERY UNCOOPERATIVE. REFUSED TO ASSESS FIGHTING.RA.IV INFUSING WELL W/ NO INFILTRATION NOTED. NO ACUTE DISTRESS NOTED.
--- NOTE | 2019-11-06 04:22 | NUR ---
0145 AWAKE W/ COMPLAINED OF PAIN AT THE LOER BACK. .NARCO 7.5MG PO GIVEN AND WENT BACK TO SLEEP AFTER.IV INFUSING WELL.NO ACUTE DISTRESS NOTED.
[2019-11-06 05:42] VITALS: BP 128/94
--- NOTE | 2019-11-06 06:45 | NUR ---
AWAKE AND REFUSED TO BE CLEAN UP.HE SAYS HE IS GOOD.RESTING COMFORTABLE IN BED.
[2019-11-06 07:09] LABS: BASOPHIL % 0.6 % (0-2)
[2019-11-06 07:17] LABS: RED CELL DISTRIBUTION WIDTH 19.1 % (11.5-14.5)
[2019-11-06 07:18] LABS: PLATELET COUNT 571 x10^3mcL (130-400)
[2019-11-06 07:24] LABS: CALCIUM 8.2 mg/dL (8.5-10.1); CARBON DIOXIDE 26.9 mmol/L (21-32); CREATININE SERUM 3.9 mg/dL (0.7-1.3); MAGNESIUM 1.8 mg/dL (1.8-2.4); PHOSPHOROUS 3.7 mg/dL (2.5-4.9)
--- NOTE | 2019-11-06 07:36 | NUR ---
RECEIVED PT LYING IN BED A/A. BREATHING EQUAL/UNLABORED ON RA. NO ACUTE PAIN/DISTRESS. REFUSED FULL ASSESSMENT. EDUCATED PT ON NEED FOR ASSESSMENT. BED IN LOW POSITION, CALL LIGHT IN REACH, SAFETY PRECAUTIONS IN PLACE. WILL CONTINUE TO MONITOR
[2019-11-06 07:49] VITALS: BP 131/93
[2019-11-06 08:27] LABS: RED BLOOD CELLS 3.12 M/mm3 (4.52-5.90)
--- NOTE | 2019-11-06 11:38 | NUR ---
PT REFUSED VITAL SIGNS. PT EDUCATION GIVEN
--- NOTE | 2019-11-06 12:47 | NUR ---
PT REFUSED MEDICATIONS, CARE, REPOSITIONING, AND FOOD. PT HAS BEEN EDUCATED BUT IS RESISTIVE. PT IN NO ACUTE DISTRESS. WILL CONTINUE TO MONITOR
--- NOTE | 2019-11-06 15:38 | NUR ---
PT RESTING IN BED WITH EYES CLOSED. BREATHING EQUAL/UNLABORED ON RA. PT REFUSES TO ANSWER QUESTIONS OR PARTICIPATE IN CARE. WILL CONTINUE TO MONITOR
[2019-11-06 15:59] VITALS: BP 126/91
--- NOTE | 2019-11-06 16:50 | NUR ---
DR. GU PAGED REGARDING PATIENTS URINE CULTURE
--- NOTE | 2019-11-06 18:28 | NUR ---
PT LYING IN BED A/A. ORIENTED X4. BREATHING EQUAL/UNLABORED ON RA. NO ACUTE CHANGES/PAIN/DISTRESS. IV SITE WNL. CATHETER FLOWING TO GRAVITY. COLOSTOMY IN PLACE. BED IN LOW POSITION, CALL LIGHT IN REACH, SAFETY PRECAUTIONS IN PLACE. WILL CONTINUE TO MONITOR AND ENDORE TO NIGHT NURSE
[2019-11-06 20:07] VITALS: BP 130/91
--- NOTE | 2019-11-06 23:37 | NUR ---
Pt alert and oriented verbal, C/o of back pain 10/10 described as Stabbing pain on his back. Butler 7.5 mg po given at HS. Denies pain at this time.
[2019-11-07 04:30] VITALS: BP 135/100
--- NOTE | 2019-11-07 05:14 | NUR ---
PT V/S- T98.5 PULSE, 57-62 O2 SAT 88 % ON ROOM AIR DESAT. PT PLACED ON O2 2L N/C O2 SAT WENT UP: O2 SAT 96-97% HR 58-62 PT DENIES ANY CHEST PAINS , NO SHORTNESS OF BREATH. CONTINUE TO MONITOR CONDITION
--- NOTE | 2019-11-07 07:00 | NUR ---
RECIEVED PT RESTING IN BED WITH NO C/O PAIN OR DISTRESS. A/O X4 WITH NO GUTIERREZ OR DIZZINESS. LUNGS CTAB WITH NO SOB NOTED. LLQ COLOSTOMY CDI WITH MINIMAL AMOUNT OF BROWN STOOL. SUPRAPUBIC IN PLACE AND DRAINING SMALL AMOUNT OF DARK YELLOW URINE. PT SCHEDULED FOR HD TODAY, HD NURSE MADE AWARE. PT PARAPLEGIC AND ABLE TO REPOSITION SELF. OPTIFOAM NOTED TO SACRAL AREA. SKIN CDI. LAC IV CDI AND PATENT. SAFETY PRECAUTIONS IN PLACE, CALL LIGHT WITHIN REACH, WILL MONITOR.
--- NOTE | 2019-11-07 07:00 | NUR ---
RECIEVED PT RESTING IN BED WITH NO C/O PAIN OR DISTRESS. A/O X4 WITH NO GUTIERREZ OR DIZZINESS. LUNGS CTAB WITH NO SOB NOTED. LLQ COLOSTOMY WITH MINIMAL AMOUNT OF BROWN STOOL. SUPRAPUBIC IN PLACE AND DRAINING SMALL AMOUNT OF DARK YELLOW URINE. PT SCHEDULED FOR HD TODAY, HD NURSE MADE AWARE. PT PARAPLEGIC AND ABLE TO REPOSITION SELF. PT REFUSING ASSESMENT OF SKIN. LAC IV CDI AND PATENT. SAFETY PRECAUTIONS IN PLACE, CALL LIGHT WITHIN REACH, WILL MONITOR.
[2019-11-07 07:29] LABS: BASOPHIL % 0.6 % (0-2)
[2019-11-07 07:36] LABS: CARBON DIOXIDE 25.7 mmol/L (21-32); POTASSIUM SERUM 4.4 mmol/L (3.5-5.1)
[2019-11-07 08:11] LABS: PLATELET COUNT 556 x10^3mcL (130-400); RED CELL DISTRIBUTION WIDTH 19.3 % (11.5-14.5)
[2019-11-07 08:38] VITALS: BP 130/93
--- NOTE | 2019-11-07 12:02 | NUR ---
HOLDING IV ANTIBIOTICS VANCO AND ZOSYN UNTIL AFTER HD IS COMPLETE. MD DAWSON.
[2019-11-07 12:28] VITALS: BP 125/90
--- NOTE | 2019-11-07 13:07 | NUR ---
DR COBOS MADE AWARE THAT JOSE LUIS AND EILEEN RESISTANT TO INFECTIONS, WILL CARRY OUT ANY NEW ORDERS.
--- NOTE | 2019-11-07 13:27 | NUR ---
NORCO GIVEN FOR C/O GEN. 08/19 PAIN, WILL MONITOR.
--- NOTE | 2019-11-07 15:48 | NUR ---
COVID-19 TEST CARRIED OUT PER ORDER AND TAKEN DOWN TO LAB.
[2019-11-07 16:26] VITALS: BP 119/94
--- NOTE | 2019-11-07 17:11 | NUR ---
AMI BEING HELD UNTIL AFTER HD IS COMPLETE, AWARE. WILL ENDORSE TO [employer]IE[employer]ENANT FIREFIGHTER IF HD NOT DONE BY SHIFT END.
--- NOTE | 2019-11-07 17:55 | NUR ---
NORCO GIVEN PER EMAR FOR C/O 09/18 PAIN, WILL MONITOR.
--- NOTE | 2019-11-07 18:09 | NUR ---
AMI STARTED, HD WILL BE STARTED AT 2000 PER HD NURSE.
--- NOTE | 2019-11-07 18:11 | NUR ---
PT RESTING IN BED WITH NO C/O PAIN OR DISTRESS. A/O X4 WITH NO GUTIERREZ OR DIZZINESS. LUNGS CTAB WITH NO SOB NOTED. LLQ COLOSTOMY WITH MINIMAL AMOUNT OF BROWN STOOL. SUPRAPUBIC IN PLACE AND DRAINING SMALL AMOUNT OF DARK YELLOW URINE. PT SCHEDULED FOR HD AT 1999. PT PARAPLEGIC AND ABLE TO REPOSITION SELF. LAC IV CDI AND PATENT. VS WNL. PT TOLERATED ALL CARES WELL. SAFETY PRECAUTIONS IN PLACE, CALL LIGHT WITHIN REACH, WILL ENDORSE CARE OVER TO NIGHT NURSE.
--- NOTE | 2019-11-07 20:00 | NUR ---
Received pt alert and oriented x4. Requested I empty his colostomy bag. Mod amount formed light brown stool. Stoma pink and moist. Cleansed skin around stoma with wipes and replaced colostomy bag. Assisted with other hygeine needs. Isolation precautions obtained. No distress noted. Continuing to monitor.
[2019-11-07 21:04] VITALS: BP 126/95
--- NOTE | 2019-11-07 21:25 | NUR ---
Heparin given to dialysis nurse to clear patients line.
--- NOTE | 2019-11-08 01:00 | NUR ---
Dialysis finished. 2500 mls out per dialysis nurse. Vitals stable. Placed sterile dressing over RUC port a cath. Snacks given per pt request. Assisted with repositioning with extra pillows.
[2019-11-08 05:15] VITALS: BP 102/48
[2019-11-08 06:49] LABS: BASOPHIL % 0.8 % (0-2)
--- NOTE | 2019-11-08 07:00 | NUR ---
RECIEVED PT RESTING IN BED WITH NO C/O PAIN OR DISTRESS. A/O X4 WITH NO GUTIERREZ OR DIZZINESS. LUNGS CTAB WITH NO SOB NOTED. LLQ COLOSTOMY WITH MINIMAL AMOUNT OF BROWN STOOL. SUPRAPUBIC IN PLACE AND DRAINING SMALL AMOUNT OF DARK YELLOW URINE. PT PARAPLEGIC AND ABLE TO REPOSITION SELF. PT REFUSING ASSESMENT OF SKIN. LAC IV CDI AND PATENT. SAFETY PRECAUTIONS IN PLACE, CALL LIGHT WITHIN REACH, WILL MONITOR.
[2019-11-08 07:06] LABS: CALCIUM 8.4 mg/dL (8.5-10.1); CARBON DIOXIDE 29.1 mmol/L (21-32); CREATININE SERUM 3.7 mg/dL (0.7-1.3); MAGNESIUM 1.8 mg/dL (1.8-2.4); POTASSIUM SERUM 4.1 mmol/L (3.5-5.1)
--- NOTE | 2019-11-08 08:18 | NUR ---
NORCO GIVEN PER EMAR FOR C/O 09/18 GENERALIZED PAIN, WILL MONITOR.
[2019-11-08 08:50] LABS: PLATELET COUNT 594 x10^3mcL (130-400)
[2019-11-08 09:38] VITALS: BP 140/104
--- NOTE | 2019-11-08 11:00 | NUR ---
PT RESTING IN BED WITH NO DISTRESS NOTED. WILL CONTINUE TO MONITOR.
[2019-11-08 13:29] VITALS: BP 143/104
--- NOTE | 2019-11-08 13:45 | NUR ---
Follow up Nutrition Assessment: 232B ANDREA EDUARDO 24M HR Dx: Severe Anemia, complicated UTI PMHx: HTN, CKD, ESRD on HD PSHx: Left colostomy Labs: NA: 135L, BUN: 20H, CREAT: 3.7H, CA: 8.4L, ALK PH: 423H (11/01), HDL: 20L (11/01), (11/01: T4: 3.4L, FTI: 1.1H, TSH: 66.210H, BNP: 1002H), WBC: 12.7H, H/H: 9.2L/28L Meds: amikin, Synthroid, Zosyn, Bactroban, Lipitor, Ditropan, Renagel, Procrit, Pepcid, Flexeril, Nephro-leonard, Neurontin, Folic acid, Ferrous sulfate, topROL XL, Norvasc, Colace, MOM, norco, senokot, zofran Diet: Renal PO intake since admission: 79% x 4 meals Edema: no noted edema Last BM: 11/05 stool in colostomy bag, formed, per nursing shift assessment last BM 11/06 GI: [+] colostomy Skin: pt refused skin assessment per skin assessment note (11/08/19) Panchito: 14 RD Note (11/04) Pt was seen lying in bed covered by blankets during bedside visit. Pt appeared to be weak and lethargic. Pt reported no GI distress today, and he did not have c/o chewing/swallowing difficulty. In the middle of assessment, pt reported wanting to go back to sleep, and RD talked to pt's RN for information. Per RN, pt did not had his breakfast, and pt did not have his lunch either per observation when RD was in pt's room. RN mentioned that pt told RN his brother will be bringing food to the hospital; however, pt might not have permission from MD. Additionally, RN reported formed stool output in pt's colostomy bag. RD note 11/08/19: per MD progress note- suprapubic catheter infection, severe hemoglobic deficiency, paraplegia, ESRD. Upon visit, pt was resting in bed and alert. Pt reported he did not eat breakfast this AM because his breakfast was cold and no one would warm it up. He was waiting on lunch at time of visit. Received the OK from nursing to have the tray delivered immediately so the pt could eat. Pt reported good PO intake when he gets the food he wants- pt reported that he likes chili beans, hot dogs, burgers, chicken sandwiches and does not like fish, unless it is fried. Pt reported he is still getting food outside from his brother, the pt reported his [birth year] was [birth year] and his brother brought him food from [employer] for his birthday. Pt was notified to ask his MD about getting food from outside. Pt requested a chicken sandwich for dinner, kitchen aware of request and will provide a chicken sandwich for dinner (white bread, no tomato), pt's food preferences communicated with kitchen staff. Will provide chicken sandwiches and burgers with no tomato and white bun per pt's preferences. Pt provided with stage 5 renal disease nutrition education handout. Estimated kcal and protein intake: 1337 kcals, 60 g protein (inadequate) Estimated Nutritional Needs Based on current body weight (59kg) Energy: 5794-3105 kcal/day (30-35 kcal/kg for ESRD on HD) Protein: 70-83 g/day (1.2-1.4 g/kg for ESRD on HD) Fluid: 6927-4582 mL/day (1 mL/kcal) Nutrition Diagnosis: 1. Underweight r/t imbalance intake and output a/e/b pt BMI < 18.5. 2. Increased energy and protein intake r/t increased energy and protein expenditure a/e/b pt ESRD on HD. 3. Inadequate oral intake related to inadequate energy intake as evidenced by pt did not eat breakfast this AM, renal diet without ONS does not provide adequate kcals for pt's estimated needs Intervention 1. Continue Renal diet as tolerated (7-day average: 1692 kcals) 2. Recommend nepro QD with breakfast meals to aid in PO intake (will provide an additional 425 kcals, 19 g protein 3. Follow up on pt's food preferences *Renal diet and nepro QD will provide 2117 kcals, 95 g protein which will meet 100% of estimated kcal and protein needs Monitor/Evaluate Goal: PO intake at least 75% of estimated needs (not met, ongoing) Monitor: PO intake, Labs, GI function, Body weight F/U in 2-3 days as MR 11/09-11/10
[2019-11-08 16:57] VITALS: BP 128/87
--- NOTE | 2019-11-08 18:13 | NUR ---
PT RESTING IN BED WITH NO C/O PAIN OR DISTRESS. A/O X4 WITH NO GUTIERREZ OR DIZZINESS. LUNGS CTAB WITH NO SOB NOTED. LLQ COLOSTOMY WITH MINIMAL AMOUNT OF BROWN STOOL. SUPRAPUBIC IN PLACE AND DRAINING SMALL AMOUNT OF DARK YELLOW URINE. PT PARAPLEGIC AND ABLE TO REPOSITION SELF. PT REFUSING ASSESMENT OF SKIN. LAC IV CDI AND PATENT. SAFETY PRECAUTIONS IN PLACE, CALL LIGHT WITHIN REACH, WILL ENDORSE CARE OVER TO NIGHT NURSE.
--- NOTE | 2019-11-08 20:33 | NUR ---
RECEIVED PT LYING IN BED AWAKE ALERT AND ORIENTEDX4.MOVES UPPER EXT WELL. UNABLE TO MOVE LOWER EXT.HEP LOCK AT LAC W. NO INFILTRATION NOTED.LUNGS ARE CLEAR BILAT.PULSES PALPABLE.ABDOMEN SOFT W/ ACTIVE BOWEL SOUND. NO DISTRESS NOTED.
[2019-11-08 20:52] VITALS: BP 126/90
[2019-11-09 05:22] VITALS: BP 135/99
--- NOTE | 2019-11-09 06:44 | NUR ---
RESTING IN BED AT THIS TIME. REFUSED FOR AM CARE.NO ACUTE DISTRESS NOTED. ASLEEP ALL NIGHT.
[2019-11-09 08:52] VITALS: BP 137/97
[2019-11-09 13:20] VITALS: BP 134/98
--- NOTE | 2019-11-09 13:24 | NUR ---
PATIENT IS A 23YEAR OLD MALE ADMTITED FOR PURLENT DRAINAGE FROM SUPRAPUBIC CATH. CONTACT PRECAUTIONS FOR MDRO/MRSA POSITIVE CULTURES. HD PATIENT WITH TUNNED CATH CENTRAL LINE ON RIGHT CHEST. M-W- SCHEDULE. HE IS ALERT AND ORIENTED X4 WITH A WITHDRAWN AFFECT HE WANTS TO SLEEP. LABS ORDERED FOR AM AND HD.
[2019-11-09 17:47] VITALS: BP 135/96
--- NOTE | 2019-11-09 19:30 | NUR ---
RECEIVED PT FROM DAY SHIFT NURSE, PT RESTING IN BED ALERT AND AWAKE A&O X4. PALPABLE PULSES, EDEMA NOTED TO BILATERAL FEET. R CHEST TUNNELED CATHETDR IN PLACE, NO BLEEDING OR DRAINAGE NOTED, DRESSING CDI. BREATHING IS EVEN AND UL ON RA, LUNG SOUNDS CTA. NO SOB OR ACUTE RESPIRATORY DISTRESS NOTED. BOWEL SOUNDS ACTIVE X4, ABD IS ROUND AND SOFT. COLOSTOMY TO LLQ, CDI. SUPRAPUBIC CATHETER IN PLACE, NO S/S OF BLEEDING, NO C/O PAIN OR DISCOMFORT, MINIMAL GREEN COLOR URINE NOTED. PT REFUSED ASSESSMENT TO BLE EXCEPT FOR FEET. IV TO LFA, CDI AND PATENT. BED AT LOWEST POSITION. ABLE TO MAKE NEEDS KNOWN, CALL LIGHT IS W/IN REACH. NO C/O PAIN OR DISCOMFORT AT THIS TIME. WILL CONTINUE TO MONITOR.
[2019-11-09 21:02] VITALS: BP 136/90
--- NOTE | 2019-11-10 00:33 | NUR ---
PT IS RESTING IN BED ASLEEP AND REMAINS IN STABLE CONDITION. NO C/O PAIN OR DISCOMFORT AT THIS TIME. WILL CONTINUE TO MONITOR.
[2019-11-10 05:04] VITALS: BP 141/99
--- NOTE | 2019-11-10 05:55 | NUR ---
PT IS RESTING IN BED AWAKE AND ALERT AND REMAINS IN STABLE CONDITION. NO C/O PAIN OR DISCOMFORT THROUGHOUT SHIFT. NO SIGNIFICANT CHANGES NOTED. WILL ENDORSE TO DAY SHIFT NURSE.
[2019-11-10 07:18] VITALS: BP 140/99
[2019-11-10 08:07] LABS: BASOPHIL % 0.4 % (0-2)
[2019-11-10 08:24] LABS: RED CELL DISTRIBUTION WIDTH 19.9 % (11.5-14.5)
[2019-11-10 08:38] LABS: CALCIUM 8.4 mg/dL (8.5-10.1); POTASSIUM SERUM 4.8 mmol/L (3.5-5.1)
[2019-11-10 08:45] LABS: CREATININE SERUM 5.5 mg/dL (0.7-1.3)
[2019-11-10 13:01] VITALS: BP 131/92
[2019-11-10 13:03] LABS: PLATELET COUNT 513 x10^3mcL (130-400)
[2019-11-10] MEDS ORDERED: SYN25 PO (13:54)
[2019-11-10] MEDS ORDERED: LIPI20 PO (13:58)
[2019-11-10] MEDS ORDERED: FOL1 PO (14:22)
[2019-11-10 18:03] VITALS: BP 125/85
--- NOTE | 2019-11-10 18:22 | NUR ---
PATIENT HAS BEEN VERY DISRESPECTFUL, SPOKE CURSING WORDS. NON-COMPLIANT AND WANTED EXACTED THE WAY HE WANTED. REFUSED 1700 REVELAMER. EDUCATION PROVIDED.
[2019-11-10 18:32] VITALS: BP 125/85
--- NOTE | 2019-11-10 19:34 | NUR ---
REPORT GIVEN TO ASHLYN BETTENCOURT ([phone]) ROBERTA, RONALDO AT 1850
--- NOTE | 2019-11-10 19:48 | NUR ---
TRANSPORT HERE TO [facility] [facility] PT. IV REMOVED. ALL PAPERWORK SIGNED AND GIVEN TO TRANSPORT TEAM. ALL BELONGINGS KEPT BY PT. PT LEAVES VIA GURNEY.
--- NOTE | 2019-11-10 19:51 | NUR ---
PATIENT HAS MULTIPLE WOUNDS ON SACRUM, RIGHT AND LEFT BUTTS. I WAS ABLE TO TAKE SOME OF THE PICTURES OF THE WOUNDS, PATIENT REFUSED ME TO TAKE THE REST OF THE PICTURES.
== END 2019-11-10 19:44 | DRG 466 ==
LOC: ED 18:20 → DU 19:48 → MU 19:48 → DU 21:20 → MU 11-04 09:36
PROVIDERS: Emergency Medicine; Internal Medicine; ADMIT Student in an Organized Health Care Education/Training Program; ATTEND Student in an Organized Health Care Education/Training Program
PROC: 30233Q1 Transfusion of Nonautologous White Cells into Peripheral Vein, Percutaneous Approach (ICD-10-PCS; principal; 2019-11-02)
PROC: 5A1D70Z Performance of Urinary Filtration, Intermittent, Less than 6 Hours Per Day (ICD-10-PCS; 2019-11-03)
PROC: 5A1D70Z Performance of Urinary Filtration, Intermittent, Less than 6 Hours Per Day (ICD-10-PCS; 2019-11-05)
PROC: 5A1D70Z Performance of Urinary Filtration, Intermittent, Less than 6 Hours Per Day (ICD-10-PCS; 2019-11-07)
PROC: 5A1D70Z Performance of Urinary Filtration, Intermittent, Less than 6 Hours Per Day (ICD-10-PCS; 2019-11-10)
DX: T83.518A Infection and inflammatory reaction due to other urinary catheter, initial encounter (principal); N17.0 Acute kidney failure with tubular necrosis; A41.9 Sepsis, unspecified organism; E43 Unspecified severe protein-calorie malnutrition; J90 Pleural effusion, not elsewhere classified; E11.22 Type 2 diabetes mellitus with diabetic chronic kidney disease; G82.20 Paraplegia, unspecified; I12.0 Hypertensive chronic kidney disease with stage 5 chronic kidney disease or end stage renal disease; E87.1 Hypo-osmolality and hyponatremia; N18.6 End stage renal disease; D63.1 Anemia in chronic kidney disease; E03.9 Hypothyroidism, unspecified; E83.51 Hypocalcemia; N25.81 Secondary hyperparathyroidism of renal origin; B96.5 Pseudomonas (aeruginosa) (mallei) (pseudomallei) as the cause of diseases classified elsewhere; Z88.8 Allergy status to other drugs, medicaments and biological substances; Z99.2 Dependence on renal dialysis; Z93.3 Colostomy status; Z79.899 Other long term (current) drug therapy; Z79.891 Long term (current) use of opiate analgesic; Z87.891 Personal history of nicotine dependence; Z88.5 Allergy status to narcotic agent; Z79.4 Long term (current) use of insulin
CPT/HCPCS: 83880; 84439; G0378; J0278; J0885-EC; J1644; J2543; J3370; J7030; J7050; P9016; Q0092; Q0163; Q9967; U0003-CS

== ENCOUNTER 2019-11-16 12:28 | Emergency (ER) | payer OTHER ==
[~2019-11-16] VITALS: Ht 198.1 cm; Wt 59.0 kg
[~2019-11-16 12:28] MED LIST changes: +FOL1 PO; +LIPI20 PO; +SYN25 PO
[2019-11-16 12:40] VITALS: Ht 198.1 cm; Wt 59.0 kg
[2019-11-16 13:37] LABS: BASOPHIL % 0.6 % (0-2); PLATELET COUNT 247 x10^3mcL (130-400); RED CELL DISTRIBUTION WIDTH 20.3 % (11.5-14.5)
[2019-11-16 13:41] LABS: BILIRUBIN TOTAL 0.63 mg/dL (0.20-1.00); CALCIUM 8.6 mg/dL (8.5-10.1); CARBON DIOXIDE 30.4 mmol/L (21-32); POTASSIUM SERUM 4.6 mmol/L (3.5-5.1)
[2019-11-16 13:43] LABS: ALBUMIN 1.9 g/dL (3.4-5.0); C REACTIVE PROTEIN 12.9 mg/dL (<=0.9); CREATININE SERUM 4.5 mg/dL (0.7-1.3); TOTAL PROTEIN, SERUM 8.7 g/dL (6.4-8.2)
[2019-11-16 14:26] LABS: rbc morphology (normal/abnorm) ABNORMAL (NORMAL)
[2019-11-16 14:28] LABS: target cell (codocyte) 1+
[2019-11-16 19:02] VITALS: BP 155/73
[2019-11-17] MEDS ORDERED: ZINC SULFATE220 M2 PO (06:10)
[2019-11-17] MEDS ORDERED: DITROPAN XL5 MG PO (06:10)
[2019-11-17] MEDS ORDERED: L-ARGININE500 M3 (06:11)
[2019-11-17] MEDS ORDERED: NEPHRO-VITE VITA1 EA PO (06:12)
[2019-11-17] MEDS ORDERED: PROAIR RES117 MCG/Ac INH (06:13)
== END 2019-11-16 19:02 | disposition home or self-care (01) ==
LOC: ED 12:28
PROVIDERS: Emergency Medicine
DX: D64.9 Anemia, unspecified (principal); K21.9 Gastro-esophageal reflux disease without esophagitis; G82.20 Paraplegia, unspecified; J90 Pleural effusion, not elsewhere classified
CPT/HCPCS: 83880; 85378; 87804; Q0092; U0003-CS

== ENCOUNTER 2019-11-17 04:03 | Inpatient (IN) | payer OTHER ==
[~2019-11-17] VITALS: Ht 182.9 cm; Wt 75.7 kg
[2019-11-17 04:07] VITALS: Ht 182.9 cm; Wt 75.7 kg
[2019-11-17 05:55] LABS: BASOPHIL % 0.2 % (0-2); PLATELET COUNT 357 x10^3mcL (130-400)
[2019-11-17 06:07] LABS: CALCIUM 8.9 mg/dL (8.5-10.1); CARBON DIOXIDE 29.9 mmol/L (21-32); POTASSIUM SERUM 5.5 mmol/L (3.5-5.1)
[2019-11-17 06:10] LABS: ALBUMIN 2.1 g/dL (3.4-5.0); CREATININE SERUM 5.2 mg/dL (0.7-1.3)
[2019-11-17] MEDS ORDERED: ZINC SULFATE220 M2 PO (06:10)
[2019-11-17] MEDS ORDERED: DITROPAN XL5 MG PO (06:10)
[2019-11-17] MEDS ORDERED: L-ARGININE500 M3 (06:11)
[2019-11-17] MEDS ORDERED: NEPHRO-VITE VITA1 EA PO (06:12)
[2019-11-17] MEDS ORDERED: PROAIR RES117 MCG/Ac INH (06:13)
[2019-11-17 06:20] LABS: BILIRUBIN TOTAL 0.85 mg/dL (0.20-1.00)
[2019-11-17 06:22] LABS: TOTAL PROTEIN, SERUM 9.1 g/dL (6.4-8.2)
[2019-11-17 08:00] VITALS: BP 145/110
[2019-11-17 11:25] VITALS: BP 145/110
[2019-11-17 12:00] VITALS: BP 144/96
[2019-11-17 16:30] VITALS: BP 130/96
[2019-11-17 20:00] VITALS: BP 133/98
[2019-11-18 05:57] VITALS: BP 132/91
[2019-11-18 07:26] LABS: BASOPHIL % 0.6 % (0-2); PLATELET COUNT 375 x10^3mcL (130-400)
[2019-11-18 07:52] LABS: CALCIUM 8.5 mg/dL (8.5-10.1); CARBON DIOXIDE 29.6 mmol/L (21-32); CREATININE SERUM 3.8 mg/dL (0.7-1.3); PHOSPHOROUS 4.9 mg/dL (2.5-4.9); POTASSIUM SERUM 3.9 mmol/L (3.5-5.1)
[2019-11-18 08:06] LABS: RED CELL DISTRIBUTION WIDTH 19.4 % (11.5-14.5)
[2019-11-18 08:14] VITALS: BP 143/93
[2019-11-18 12:06] VITALS: BP 141/94
[2019-11-18 16:37] VITALS: BP 137/91
[2019-11-18 21:33] VITALS: BP 135/98
[2019-11-19 07:20] VITALS: BP 131/86
[2019-11-19 07:44] LABS: CALCIUM 8.2 mg/dL (8.5-10.1); POTASSIUM SERUM 3.4 mmol/L (3.5-5.1)
[2019-11-19 07:47] LABS: CREATININE SERUM 4.8 mg/dL (0.7-1.3)
[2019-11-19 08:47] LABS: BASOPHIL % 0.6 % (0-2); PLATELET COUNT 362 x10^3mcL (130-400)
[2019-11-19 08:57] LABS: RED CELL DISTRIBUTION WIDTH 19.8 % (11.5-14.5)
[2019-11-19 12:19] LABS: burr cell (echinocyte) 1+; ovalocyte/elliptocyte 1+; rbc morphology (normal/abnorm) ABNORMAL (NORMAL)
[2019-11-19 12:25] VITALS: BP 123/71
[2019-11-19 17:30] VITALS: BP 135/93
[2019-11-19 19:17] VITALS: BP 134/86
[2019-11-20 08:10] VITALS: BP 126/77
[2019-11-20 09:31] LABS: BASOPHIL % 0.3 % (0-2); PLATELET COUNT 364 x10^3mcL (130-400)
[2019-11-20 09:49] LABS: CALCIUM 8.9 mg/dL (8.5-10.1); CARBON DIOXIDE 30.5 mmol/L (21-32); CREATININE SERUM 2.9 mg/dL (0.7-1.3); POTASSIUM SERUM 3.4 mmol/L (3.5-5.1)
[2019-11-20 09:59] LABS: RED CELL DISTRIBUTION WIDTH 19.5 % (11.5-14.5)
[2019-11-20 12:08] VITALS: BP 131/87
[2019-11-20 16:43] VITALS: BP 139/84
[2019-11-20 19:57] VITALS: BP 143/79
[2019-11-21 06:27] VITALS: BP 126/63
[2019-11-21 07:31] LABS: BASOPHIL % 0.6 % (0-2); PLATELET COUNT 317 x10^3mcL (130-400)
[2019-11-21 07:33] LABS: RED CELL DISTRIBUTION WIDTH 19.2 % (11.5-14.5)
[2019-11-21 07:37] LABS: CALCIUM 8.8 mg/dL (8.5-10.1); CARBON DIOXIDE 31.1 mmol/L (21-32); POTASSIUM SERUM 3.4 mmol/L (3.5-5.1)
[2019-11-21 07:55] LABS: CREATININE SERUM 4.2 mg/dL (0.7-1.3)
[2019-11-21 08:32] VITALS: BP 116/65
[2019-11-21 12:22] VITALS: BP 97/52
[2019-11-21 14:10] VITALS: BP 97/52
== END 2019-11-21 16:15 | DRG 143 ==
LOC: ED 04:03 → DU 06:11 → IC 06:11 → DU 23:14
PROVIDERS: Emergency Medicine; Internal Medicine; ADMIT Internal Medicine; ATTEND Internal Medicine
PROC: 0W9930Z Drainage of Right Pleural Cavity with Drainage Device, Percutaneous Approach (ICD-10-PCS; principal; 2019-11-17)
PROC: 5A1D70Z Performance of Urinary Filtration, Intermittent, Less than 6 Hours Per Day (ICD-10-PCS; 2019-11-18)
PROC: 5A1D70Z Performance of Urinary Filtration, Intermittent, Less than 6 Hours Per Day (ICD-10-PCS; 2019-11-19)
PROC: 5A1D70Z Performance of Urinary Filtration, Intermittent, Less than 6 Hours Per Day (ICD-10-PCS; 2019-11-20)
DX: J93.9 Pneumothorax, unspecified (principal); J18.9 Pneumonia, unspecified organism; I12.0 Hypertensive chronic kidney disease with stage 5 chronic kidney disease or end stage renal disease; J90 Pleural effusion, not elsewhere classified; G82.20 Paraplegia, unspecified; N18.6 End stage renal disease; E87.70 Fluid overload, unspecified; E83.39 Other disorders of phosphorus metabolism; E03.9 Hypothyroidism, unspecified; D63.1 Anemia in chronic kidney disease; R06.03 Acute respiratory distress; E87.5 Hyperkalemia; L89.629 Pressure ulcer of left heel, unspecified stage; L89.619 Pressure ulcer of right heel, unspecified stage; Z79.899 Other long term (current) drug therapy; Z79.891 Long term (current) use of opiate analgesic; Z93.3 Colostomy status; Z99.2 Dependence on renal dialysis; Z79.01 Long term (current) use of anticoagulants; Z88.8 Allergy status to other drugs, medicaments and biological substances
CPT/HCPCS: C9113; G0378; J1644; J2270; J2543; J7030; Q0092; U0003-CS